=== PATIENT | male | born 1975 | race African-American/Black ===

== ENCOUNTER 2016-08-23 19:23 | Emergency (ER) | payer OTHER ==
[~2016-08-23] VITALS: Ht 195.6 cm; Wt 113.6 kg
[~2016-08-23 19:23] MED LIST: ACET-66 PO; AMLO-511 PO; GLYBURIDE PO; LISINOPRIL PO
[2016-08-23 19:47] LABS: GLUCOSE COMMENT 1 Repeated; GLUCOSE,POINT OF CARE 561 MG/DL (70-110)
[2016-08-23] MEDS ORDERED: SODIUM CHLORIDE 0.9% 1,000 ML IV ONE (20:30)
[2016-08-23] MEDS ORDERED: VANCOMYCIN HCL 1 GM/D5% WATER 200 ML IV ONE (22:30)
[2016-08-23] MEDS ORDERED: MORPHINE SULFATE 10 MG/ML SYRINGE IVP ONE (22:30)
[2016-08-23] MEDS ORDERED: PROCHLORPERAZINE EDISYLATE 5 MG/ML 2 ML VIAL IVP ONE (22:30)
[2016-08-23] MEDS ORDERED: PIPERACILLIN/TAZO 3.375 GM/D5W 50 ML IV ONE (22:30)
[2016-08-24 00:27] LABS: GLUCOSE,POINT OF CARE 419 MG/DL (70-110)
[2016-08-24] MEDS ORDERED: SODIUM CHLORIDE 0.9% 1,000 ML IV ONE (00:30)
[2016-08-24] MEDS ORDERED: INSULIN REGULAR, HUMAN 100 UNITS/ML IVP ONE (00:30)
[2016-08-24 01:47] LABS: GLUCOSE,POINT OF CARE 344 MG/DL (70-110)
[2016-08-24 02:47] LABS: BASOPHILS # (AUTO) 0.03 K/uL (0.00-0.20); BASOPHILS % (AUTO) 0.3 % (0.0-2.0); EOSINOPHILS # (AUTO) 0.18 K/uL (0.00-0.70); EOSINOPHILS % (AUTO) 1.65 % (1.0-6.0); HEMATOCRIT 40.6 % (41-53); HEMOGLOBIN 13.1 g/dL (13.5-17.5); LYMPHOCYTES # (AUTO) 1.7 K/uL (1.0-4.8); LYMPHOCYTES % (AUTO) 15.3 % (22.0-44.0); MEAN CORPUSCULAR HEMOGLOBIN 28.1 pg (26.0-34.0); MEAN CORPUSCULAR HGB CONC 32.3 G/dL (31.0-37.0); MEAN CORPUSCULAR VOLUME 87 fL (80-100); MONOCYTES # (AUTO) 0.8 K/uL (0.1-1.0); MONOCYTES % (AUTO) 7.3 % (2.0-9.0); NEUTROPHILS # (AUTO) 8.2 K/uL (1.8-7.7); NEUTROPHILS % (AUTO) 75.5 % (40.0-70.0); PLATELET COUNT (AUTO) 270 K/uL (150-450); RED BLOOD CELL COUNT(AUTO) 4.67 MIL/uL (4.50-5.90); RED CELL DISTRIBUTION WIDTH 14.9 % (11.5-14.5); WHITE BLOOD COUNT (AUTO) 10.8 K/uL (4.5-11.0)
[2016-08-24 02:55] LABS: ANION GAP 7 mmol/L (8-16); CALCIUM, TOTAL 8.3 mg/dL (8.8-10.5); CARBON DIOXIDE 28 mmol/L (22-29); CHLORIDE 100 mmol/L (98-107); CREATININE 1.42 mg/dL (0.60-1.30); GLOMERULAR FILTR. RATE CALC > 60 mL/min (>60); POTASSIUM 4.4 mmol/L (3.5-5.1); SODIUM SERUM 135 mmol/L (136-145); UREA NITROGEN, BLOOD 18 mg/dL (7-18)
[2016-08-24 03:02] LABS: ALANINE AMINOTRANSFERASE 25 U/L (12-78); ALBUMIN 2.4 g/dL (3.4-5.0); ASPARTATE AMINOTRANSFERASE 13 U/L (15-37); BILIRUBIN,TOTAL 0.6 mg/dL (0.1-1.0); TOTAL PROTEIN, SERUM 6.6 g/dL (6.4-8.2)
[2016-08-24] MEDS ORDERED: LIDOCAINE HCL BUFFERED 1% 20 ML VIAL ONE (03:07)
[2016-08-24] MEDS ORDERED: LIDOCAINE HCL BUFFERED 1% 20 ML VIAL INJ ONE (03:15)
[2016-08-24] MEDS ORDERED: LIDOCAINE HCL 1% 20 ML VIAL INJ ONE (03:15)
[2016-08-24 04:50] VITALS: BP 185/108
== END 2016-08-24 05:50 | disposition short-term general hospital (02) ==
LOC: EMS 19:25
DX: L02.612 Cutaneous abscess of left foot (principal); L03.116 Cellulitis of left lower limb; E11.65 Type 2 diabetes mellitus with hyperglycemia; I10 Essential (primary) hypertension; J45.909 Unspecified asthma, uncomplicated
CPT/HCPCS: 10060; 36415; 73630; 80053; 82962; 85025; 85651; 87070; 87077; 87205; 96361; 96365; 96366; 96367; 96375; 99285; J0780; J1815; J2270; J2543; J3370; J3490; J7030 ×2